=== PATIENT | male | born 1975 | race Caucasian/White ===

== ENCOUNTER 2023-08-31 19:27 | Emergency (ER) | payer SELFPAY ==
[2023-08-31 19:56] LABS: BASOPHILS PERCENT AUTO 0.8 % (0.1-1.3); EOSINOPHILS PERCENT AUTO 3.3 % (0.0-5.4); HEMATOCRIT 43.1 % (38.4-49.7); HEMOGLOBIN 14.5 g/dL (12.9-16.9); IMMATURE GRAN ABSOLUTE AUTO 0.04 K/uL (0.00-0.23); IMMATURE GRAN PERCENT AUTO 0.3 % (0.0-0.7); LYMPHOCYTES ABSOLUTE AUTO 4.43 K/uL (0.8-3.3); MEAN CORPUSCULAR HEMOGLOBIN 31.3 pg (31.6-35.5); MEAN CORPUSCULAR HGB CONC 33.6 g/dL (31.6-35.5); MEAN CORPUSCULAR VOLUME 92.9 fL (81.4-99.0); MONOCYTES ABSOLUTE AUTO 0.97 K/uL (0.20-0.90); MONOCYTES PERCENT AUTO 8.1 % (3.3-12.6); NEUTROPHILS ABSOLUTE AUTO 6.02 K/uL (1.0-7.6); NEUTROPHILS PERCENT AUTO 50.5 % (40.0-78.1); PLATELET COUNT,PLT 354 K/uL (130-375); RED BLOOD CELL COUNT 4.64 M/uL (4.14-5.76)
[2023-08-31 20:19] LABS: ALANINE AMINOTRANSFERASE,ALT 31 U/L (12-78); ALBUMIN 3.5 g/dL (3.4-5.0); ALKALINE PHOSPHATASE 76 U/L (46-116); ANION GAP 9.8 mmol/L (5.0-14.0); ASPARTATE AMNIOTRANSFERASE,AST 16 U/L (15-37); BILIRUBIN TOTAL 0.2 mg/dL (0.2-1.0); BLOOD UREA NITROGEN,BUN 19 mg/dL (7-18); CALCIUM 8.6 mg/dL (8.5-10.1); CARBON DIOXIDE,CO2 28 mmol/L (21-32); CHLORIDE,CL 102 mmol/L (100-108); CREATININE 1.3 mg/dL (0.8-1.3); EST CRCL DRUG DOSING (CG) 79.39 mL/min; ESTIMATED GFR 68 mL/min (>60); GLUCOSE RANDOM 111 mg/dL (74-106); SODIUM,NA 140 mmol/L (140-148); TROPONIN I HIGH SENSITIVITY 4.5 pg/mL (<=60.3)
== END 2023-08-31 21:30 | disposition home or self-care (01) ==
LOC: JP.ED 19:27
DX: R07.89 Other chest pain (principal); N64.4 Mastodynia; F17.210 Nicotine dependence, cigarettes, uncomplicated
CPT/HCPCS: 36415; 71045; 71045-26; 80053; 84484; 85025; 85379; 86140; 93005; 93010; 99283; 99285